=== PATIENT | male | born 1950 | race Caucasian/White ===

== ENCOUNTER → 2016-08-09 | Outpatient (REF) | payer BC ==
[2016-08-09 12:50] LABS: ALBUMIN 4.2 GM/DL (3.2-5.2); ALKALINE PHOSPHATASE 74 U/L (45-117); ALT/SGPT 30 U/L (12-78); ANION GAP 11 MEQ/L (8-16); AST/SGOT 23 U/L (15-37); BILIRUBIN,TOTAL 0.4 MG/DL (0.2-1.0); BLOOD UREA NITROGEN 26 MG/DL (7-18); CALCIUM LEVEL 8.9 MG/DL (8.8-10.2); CARBON DIOXIDE LEVEL 25 MEQ/L (21-32); CHLORIDE LEVEL 104 MEQ/L (98-107); CHOLESTEROL LEVEL 126 MG/DL (<200); GLOMERULAR FILTRATION RATE > 60.0 (>49); GLUCOSE, FASTING 86 MG/DL (80-110); POTASSIUM SERUM 4.3 MEQ/L (3.5-5.1); SODIUM LEVEL 140 MEQ/L (136-145); TOTAL PROTEIN 7.2 GM/DL (6.4-8.2); TRIGLYCERIDES LEVEL 107 MG/DL (<150)
== END ==
LOC: M SFHCPLAZ 08:00
PROVIDERS: ATTEND Physician Assistant
DX: I10 Essential (primary) hypertension (principal); E78.2 Mixed hyperlipidemia; Z12.5 Encounter for screening for malignant neoplasm of prostate
CPT/HCPCS: 36415; 80053; 80061; G0103

== ENCOUNTER → 2017-01-30 | Outpatient (REF) | payer BC | LOC: M SFHCPLAZ 08:50 | PROVIDERS: ATTEND Physician Assistant | DX: Z12.5 Encounter for screening for malignant neoplasm of prostate (principal) | CPT/HCPCS: 36415; G0103 ==

== ENCOUNTER → 2018-05-28 | Outpatient (REF) | payer MEDICARE ==
[2018-05-28 12:12] LABS: BASO # 0.1 10^3/uL (0.0-0.2); BASO % 1.3 % (0.0-1.0); EOS # 0.3 10^3/uL (0.0-0.50); EOS % 3.8 % (0.0-3.0); HEMATOCRIT 47.9 % (42.0-52.0); HEMOGLOBIN 16.6 g/dl (13.5-17.5); LYMPH # 1.4 10^3/uL (1.5-4.5); LYMPH % 20.1 % (24.0-44.0); MEAN CORPUSCULAR HEMOGLOBIN 31.9 pg (27.0-33.0); MEAN CORPUSCULAR HGB CONC 34.7 g/dl (32.0-36.5); MEAN CORPUSCULAR VOLUME 92.1 fl (80.0-96.0); MONO # 0.9 10^3/uL (0.0-0.8); MONO % 12.3 % (0.0-5.0); NEUTROPHILS # 4.5 10^3/uL (1.8-7.7); NEUTROPHILS % 62.1 % (36.0-66.0); PLATELET COUNT, AUTOMATED 259 10^3/uL (150-450); WHITE BLOOD COUNT 7.2 10^3/uL (4.0-10.0)
[2018-05-28 12:43] LABS: ALBUMIN 4.3 GM/DL (3.2-5.2); ALT/SGPT 24 U/L (12-78); BILIRUBIN,TOTAL 0.8 MG/DL (0.2-1.0); BLOOD UREA NITROGEN 22 MG/DL (7-18); CALCIUM LEVEL 9.2 MG/DL (8.8-10.2); CARBON DIOXIDE LEVEL 27 MEQ/L (21-32); CHLORIDE LEVEL 103 MEQ/L (98-107); CHOLESTEROL LEVEL 146 MG/DL (<200); CHOLESTEROL RISK RATIO 4.055 (<5); CREATININE FOR GFR 1.02 MG/DL (0.70-1.30); FREE T4 1.02 NG/DL (0.76-1.46); GLOMERULAR FILTRATION RATE > 60.0 (>49); GLUCOSE, FASTING 109 MG/DL (70-100); HDL CHOLESTEROL 36 MG/DL (>40); LDL CHOLESTEROL 84 MG/DL (<100); NON-HDL-C 110 MG/DL; POTASSIUM SERUM 4.2 MEQ/L (3.5-5.1); SODIUM LEVEL 139 MEQ/L (136-145); TOTAL PROTEIN 7.4 GM/DL (6.4-8.2); TRIGLYCERIDES LEVEL 130 MG/DL (<150)
[2018-05-28 14:00] LABS: MAU/CREAT RATIO 58.9 MCG/MG (0.0-30.0)
[2018-05-28 14:07] LABS: HEMOGLOBIN A1c 6.1 %
== END ==
LOC: M SFHCPLAZ 09:24
PROVIDERS: ATTEND Physician Assistant
DX: L98.9 Disorder of the skin and subcutaneous tissue, unspecified (principal); E78.2 Mixed hyperlipidemia; F32.9 Major depressive disorder, single episode, unspecified; R73.01 Impaired fasting glucose; N40.0 Benign prostatic hyperplasia without lower urinary tract symptoms; I10 Essential (primary) hypertension
CPT/HCPCS: 36415; 80053; 80061; 82043; 83036; 84439; 84443; 85025; 90682; G0008; G0103

== ENCOUNTER → 2018-05-30 | Outpatient (REF) | payer MEDICARE | LOC: M SFHCPLAZ 11:39 | PROVIDERS: ATTEND Dermatology | DX: L12.0 Bullous pemphigoid (principal); D22.39 Melanocytic nevi of other parts of face ==

== ENCOUNTER → 2018-06-13 | Outpatient (REF) | payer MEDICARE | LOC: M SFHCPLAZ 10:14 | PROVIDERS: ATTEND Dermatology | DX: Q87.89 Other specified congenital malformation syndromes, not elsewhere classified (principal) ==

== ENCOUNTER 2018-08-14 04:02 | Emergency (ER) | payer MEDICARE ==
[~2018-08-14] VITALS: Ht 175.3 cm; Wt 81.8 kg
[2018-08-14] MEDS ORDERED: AUGM0.0534 (04:09)
[2018-08-14] MEDS ORDERED: LISI40TA (04:09)
[2018-08-14] MEDS ORDERED: CITA-231 (04:09)
[2018-08-14] MEDS ORDERED: SIMV40TA2 (04:09)
[2018-08-14 04:46] LABS: BASO # 0.1 10^3/uL (0.0-0.2); BASO % 1.3 % (0.0-1.0); EOS # 0.3 10^3/uL (0.0-0.50); EOS % 5.7 % (0.0-3.0); HEMATOCRIT 49.1 % (42.0-52.0); LYMPH # 2.1 10^3/uL (1.5-4.5); LYMPH % 35.4 % (24.0-44.0); MEAN CORPUSCULAR HEMOGLOBIN 31.9 pg (27.0-33.0); MEAN CORPUSCULAR HGB CONC 34.6 g/dl (32.0-36.5); MEAN CORPUSCULAR VOLUME 92.1 fl (80.0-96.0); MONO # 0.8 10^3/uL (0.0-0.8); MONO % 13.3 % (0.0-5.0); NEUTROPHILS # 2.6 10^3/uL (1.8-7.7); PLATELET COUNT, AUTOMATED 197 10^3/uL (150-450); RED BLOOD COUNT 5.33 10^6/uL (4.30-6.10); WHITE BLOOD COUNT 5.9 10^3/uL (4.0-10.0)
[2018-08-14] MEDS ORDERED: KETOROLAC 30 MG/ML VIAL (J1885) IV ONE (05:00)
--- NOTE | 2018-08-14 05:04 | REPVR ---
EXAM: CT Head Without Contrast EXAM DATE/TIME: 08/14/2018 4:15 AM CLINICAL HISTORY: 68 years old, male; Signs and symptoms; Visual disturbance; Additional info: Blurred vision TECHNIQUE: Imaging protocol: Axial computed tomography images of the head/brain without contrast. Radiation optimization: All CT scans at this facility use at least one of these dose optimization techniques: automated exposure control; mA and/or kV adjustment per patient size (includes targeted exams where dose is matched to clinical indication); or iterative reconstruction. COMPARISON: No relevant prior studies available. FINDINGS: Brain: The brain parenchyma is symmetric. There is no evidence of intracranial hemorrhage or mass effect. There is preservation of the narvaez-white matter differentiation. Ventricles: Normal. No ventriculomegaly. Bones/joints: Unremarkable. No acute fracture. Sinuses: Visualized sinuses are unremarkable. No acute sinusitis. Mastoid air cells: Visualized mastoid air cells are unremarkable. No mastoid effusion. Soft tissues: There is extracranial soft tissue swelling/scalp hematoma in the posterior right parietal region. IMPRESSION: 1. Extracranial soft tissue swelling/scalp hematoma posterior right parietal region. 2. There is no evidence of intracranial hemorrhage or acute intracranial abnormality. Electronically signed by: Ashok Garibay On 08/14/2018 05:04:25 AM
[2018-08-14 05:08] LABS: ALBUMIN 3.8 GM/DL (3.2-5.2); ALT/SGPT 31 U/L (12-78); BILIRUBIN,DIRECT 0.1 MG/DL (0.0-0.2); BILIRUBIN,TOTAL 0.6 MG/DL (0.2-1.0); BLOOD UREA NITROGEN 22 MG/DL (7-18); CALCIUM LEVEL 8.5 MG/DL (8.8-10.2); CARBON DIOXIDE LEVEL 26 MEQ/L (21-32); CHLORIDE LEVEL 107 MEQ/L (98-107); CPK CREATINE PHOSPHOKINASE 134 U/L (39-308); CREATININE FOR GFR 0.98 MG/DL (0.70-1.30); GLOMERULAR FILTRATION RATE > 60.0 (>49); GLUCOSE, FASTING 115 MG/DL (70-100); MB/CK RELATIVE INDEX 1.42 (< OR =4); POTASSIUM SERUM 3.4 MEQ/L (3.5-5.1); SODIUM LEVEL 141 MEQ/L (136-145); TROPONIN I < 0.02 NG/ML (< 0.10)
[2018-08-14 06:00] VITALS: BP 142/87
--- NOTE | 2018-08-15 06:14 | ECGEPIP ---
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
== END 2018-08-14 06:38 | disposition home or self-care (01) ==
LOC: M ED 04:02
DX: G25.0 Essential tremor (principal); R00.0 Tachycardia, unspecified; I49.3 Ventricular premature depolarization; H53.8 Other visual disturbances; E78.5 Hyperlipidemia, unspecified; I10 Essential (primary) hypertension; G43.909 Migraine, unspecified, not intractable, without status migrainosus; Z79.899 Other long term (current) drug therapy
CPT/HCPCS: 70450; 80048; 80076; 82550; 82553; 84443; 84484; 85025; 93005; 93041; 94760; 96374; 99285; J1885

== ENCOUNTER → 2018-08-15 | Outpatient (REF) | payer MEDICARE ==
[~2018-08-15] MED LIST: AUGM0.0534; CITA-231; LISI40TA; SIMV40TA2
[2018-08-15 14:51] LABS: BLOOD UREA NITROGEN 27 MG/DL (7-18); CALCIUM LEVEL 8.9 MG/DL (8.8-10.2); CARBON DIOXIDE LEVEL 26 MEQ/L (21-32); CHLORIDE LEVEL 108 MEQ/L (98-107); CREATININE FOR GFR 0.89 MG/DL (0.70-1.30); GLOMERULAR FILTRATION RATE > 60.0 (>49); GLUCOSE, FASTING 91 MG/DL (70-100); POTASSIUM SERUM 4.5 MEQ/L (3.5-5.1); SODIUM LEVEL 141 MEQ/L (136-145)
== END ==
LOC: M SFHCPLAZ 11:12
PROVIDERS: ATTEND Physician Assistant
DX: E87.6 Hypokalemia (principal)

== ENCOUNTER 2018-09-12 11:56 | Inpatient (IN) | payer MEDICARE ==
[~2018-09-12] VITALS: Ht 175.3 cm; Wt 81.8 kg
[~2018-09-12 11:56] MED LIST changes: -CITA-231; +CITA40TA6 PO; -LISI40TA; +LISI40TA PO; -SIMV40TA2; +SIMV40TA2 PO
[2018-09-12] MEDS ORDERED: GI COCKTAIL 50ML BTL(HYOSCYAMINE/MAALOX/LIDOCAINE VISCOUS)(1:3:1) PO ONE ×2 (12:15→18:45)
[2018-09-12] MEDS ORDERED: IPRATROPIUM 0.5MG/ALBUTEROL 2.5MG INH SOL UD 3ML (DUONEB)(J7620) NEB PRN (12:15)
[2018-09-12] MEDS ORDERED: NS 1,000 ML IV ONE (12:15)
[2018-09-12 12:28] LABS: BASO # 0.1 10^3/uL (0.0-0.2); BASO % 0.5 % (0.0-1.0); EOS # 0.1 10^3/uL (0.0-0.50); EOS % 0.4 % (0.0-3.0); LYMPH # 1.9 10^3/uL (1.5-4.5); MEAN CORPUSCULAR HEMOGLOBIN 32.1 pg (27.0-33.0); MEAN CORPUSCULAR HGB CONC 35.1 g/dl (32.0-36.5); MEAN CORPUSCULAR VOLUME 91.6 fl (80.0-96.0); MONO # 1.3 10^3/uL (0.0-0.8); MONO % 9.1 % (0.0-5.0); NEUTROPHILS # 11.3 10^3/uL (1.8-7.7); NEUTROPHILS % 76.5 % (36.0-66.0); PLATELET COUNT, AUTOMATED 235 10^3/uL (150-450); WHITE BLOOD COUNT 14.7 10^3/uL (4.0-10.0)
--- NOTE | 2018-09-12 12:33 | REP ---
Portable chest, 12:20 p.m., single AP view, the patient semi upright: Comparison is 11/09/2007. The lung bhandari are clear. The cardiac size is normal. The candido, mediastinum, and skeletal structures are unremarkable. Impression: Negative portable chest. There is no interval change. Electronically Signed by Wilton Contreras MD 09/12/2018 12:24 P
[2018-09-12 12:34] LABS: HEMATOCRIT 51.3 % (42.0-52.0)
[2018-09-12 13:10] LABS: BLOOD UREA NITROGEN 25 MG/DL (7-18); CALCIUM LEVEL 10.2 MG/DL (8.8-10.2); CARBON DIOXIDE LEVEL 24 MEQ/L (21-32); CHLORIDE LEVEL 102 MEQ/L (98-107); CPK CREATINE PHOSPHOKINASE 73 U/L (39-308); CREATININE FOR GFR 2.19 MG/DL (0.70-1.30); GLOMERULAR FILTRATION RATE 32.2 (>49); GLUCOSE, FASTING 179 MG/DL (70-100); MB/CK RELATIVE INDEX 1.51 (< OR =4); POTASSIUM SERUM 4.2 MEQ/L (3.5-5.1); SODIUM LEVEL 137 MEQ/L (136-145); TROPONIN I < 0.02 NG/ML (< 0.10)
[2018-09-12] MEDS ORDERED: ASPI81TA85 PO (13:23)
[2018-09-12 15:21] LABS: BILIRUBIN, URINE MANUAL NEGATIVE (NEGATIVE); GLUCOSE, URINE (UA) MANUAL TRACE(50 MG/DL) mg/dL (NEGATIVE); KETONE, URINE MANUAL 1+ mg/dL (NEGATIVE); UROBILINOGEN, URINE MANUAL NORMAL (NORMAL)
[2018-09-12 15:32] LABS: SQUAMOUS EPITHELIAL CELL URINE SMALL AMOUNT /hpf (SMALL AMT)
[2018-09-12 15:33] LABS: BACTERIA, URINE SMALL AMOUNT
[2018-09-12 15:34] LABS: GRANULAR CAST, URINE 0-1 /lpf; WHITE BLOOD CELL CAST, URINE 0-1 /lpf
[2018-09-12 15:35] LABS: AMORPHOUS SEDIMENT, URINE SMALL AMOUNT (NEGATIVE); MUCUS, URINE SMALL AMOUNT (NEGATIVE)
[2018-09-12] MEDS ORDERED: NITROGLYCERIN 0.4 MG SUBL TABLET SL STA (16:18)
[2018-09-12] MEDS ORDERED: ONDANSETRON 4MG/2ML VIAL (J2405) IV ONE (17:00)
[2018-09-12 17:05] VITALS: BP 147/88
[2018-09-12 17:19] LABS: CK-MB VALUE MASS < 1.0 NG/ML (<3.6); CPK CREATINE PHOSPHOKINASE 67 U/L (39-308); MB/CK RELATIVE INDEX 1.49 (< OR =4); TROPONIN I < 0.02 NG/ML (< 0.10)
[2018-09-12 17:33] LABS: ALBUMIN 4.9 GM/DL (3.2-5.2); ALT/SGPT 31 U/L (12-78); BILIRUBIN,DIRECT 0.2 MG/DL (0.0-0.2); BILIRUBIN,TOTAL 0.8 MG/DL (0.2-1.0); LIPASE 142 U/L (73-393); TOTAL PROTEIN 7.9 GM/DL (6.4-8.2)
[2018-09-12] MEDS ORDERED: IPRATROPIUM 0.5MG/ALBUTEROL 2.5MG INH SOL UD 3ML (DUONEB)(J7620) NEB ONE (17:45)
[2018-09-12] MEDS ORDERED: METOCLOPRAMIDE INJ 10MG/2ML VIAL (J2765) IV ONE ×2 (18:00→22:15)
[2018-09-12] MEDS: NS 1,000 ML IV SCH (18:15)
[2018-09-12] MEDS ORDERED: MULTCAP PO (18:39)
[2018-09-12] MEDS ORDERED: OMEP20CA3 PO (18:39)
--- NOTE | 2018-09-12 19:33 | ECGEPIP ---
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
--- NOTE | 2018-09-12 20:08 | REP ---
Supine abdomen single AP view: The bowel gas pattern is normal. There is no bowel obstruction. There are no calcifications. There is degenerative disc disease throughout the lumbar spine. Skeletal structures are otherwise unremarkable. Impression: Normal bowel gas pattern. Electronically Signed by Wilton Contreras MD 09/12/2018 07:59 P
[2018-09-12] MEDS ORDERED: PANTOPRAZOLE 40MG INJ (PROTONIX) (C9113) IV ONE (22:15)
[2018-09-12] MEDS ORDERED: PROMETHAZINE INJ 25 MG/ML VIAL (J2550) IV PRN (22:15)
--- NOTE | 2018-09-13 00:13 | HPEPDOC ---
General Date of Admission Sep 12, 2018 at 20:50 Chief Complaint The patient is a 68-year-old male admitted with a reason for visit of Intractab le Vomiting. History of Present Illness 68-year-old male with past medical history of hypertension, dyslipidemia, GERD, anxiety/depression presents to the ER with a chief complaint of an episode of nausea, vomiting, and diaphoresis while playing golf this morning. He denies any associated lightheadedness, dizziness, shortness of breath, cough, chest pain, palpitations, abdominal pain, or any recent travel, sick contacts, or ingestion of any foreign foods. Of note, the patient states that he has had episodes like this in the past which was previously attributed to dehydration. The patient denies any other symptoms leading up to this event. In the ER, the patient was noted to have a low-grade fever with an elevated white blood cell count. In addition, he was also noted to have an acute kidney injury. He will be admitted under the service of the [facility] for further evaluation and management. Home Medications Scheduled Aspirin (Aspir 81) 81 Mg Tablet.dr, 81 MG PO DAILY, (Reported) Citalopram Hydrobromide (Citalopram HBr) 40 Mg Tab, 40 MG PO DAILY, (Reported) Lisinopril (Lisinopril) 40 Mg Tab, 40 MG PO DAILY, (Reported) Multivitamin (Multivitamins) 1 Each Capsule, 1 CAP PO DAILY, (Reported) Omeprazole (Omeprazole) 20 Mg Capsule.dr, 20 MG PO DAILY, (Reported) Simvastatin (Simvastatin) 40 Mg Tab, 40 MG PO DAILY, (Reported) Allergies Coded Allergies: No Known Drug Allergies (Verified Allergy, Unknown, 09/12/18) Past Medical History Medical History As noted in HPI. Surgical History None. Social History * Smoker: Denies Alcohol: occationally Drugs: denies Review of Systems Other systems 10 point review of systems negative unless otherwise specified in HPI. Physical Examination General Exam: Positive: Alert, Cooperative, No Acute Distress ENT Exam: Positive: Atraumatic; Negative: Mucous membr. moist/pink (dry mucous membranes) Neck Exam: Negative: JVD Chest Exam: Positive: Clear to auscultation, Normal air movement Heart Exam: Positive: Tachycardic, Normal S1, Normal S2 Abdomen Exam: Positive: Soft; Negative: Tenderness Extremity Exam: Negative: Tenderness, Swelling Psych Exam: Positive: Oriented x 3 Vital Signs Vital Signs Date Time Temp Pulse Resp B/P (MAP) Pulse Ox O2 Delivery O2 Flow Rate FiO2 09/12/18 23:33 100.0 09/12/18 23:01 100 18 95 Nasal Cannula 2.0 09/12/18 23:00 168/78 (108) Laboratory Data Labs 24H Laboratory Tests 2 09/12/18 12:13: Immature Granulocyte % (Auto) 0.5, White Blood Count 14.7H, Red Blood Count 5.60, Hemoglobin 18.0H, Hematocrit 51.3, Mean Corpuscular Volume 91.6, Mean Corpuscular Hemoglobin 32.1, Mean Corpuscular Hemoglobin Concent 35.1, Red Cell Distribution Width 12.4, Platelet Count 235, Neutrophils (%) (Auto) 76.5H, Lymphocytes (%) (Auto) 13.0L, Monocytes (%) (Auto) 9.1H, Eosinophils (%) (Auto) 0.4, Basophils (%) (Auto) 0.5, Neutrophils # (Auto) 11.3H, Lymphocytes # (Auto) 1.9, Monocytes # (Auto) 1.3H, Eosinophils # (Auto) 0.1, Basophils # (Auto) 0.1, Nucleated Red Blood Cells % (auto) 0.0, Anion Gap 11, Glomerular Filtration Rate 32.2L, Blood Urea Nitrogen 25H, Creatinine 2.19H, Sodium Level 137, Potassium Level 4.2, Chloride Level 102, Carbon Dioxide Level 24, Calcium Level 10.2, Total Creatine Kinase 73, Aspartate Amino Transf (AST/SGOT) 16, Alanine Aminotransferase (ALT/SGPT) 31, Alkaline Phosphatase 81, Total Bilirubin 0.8, Direct Bilirubin 0.2, Creatine Kinase MB 1.0, Creatine Kinase MB Relative Index 1.51, Troponin I < 0.02, Total Protein 7.9, Albumin 4.9, Albumin/Globulin Ratio 1.63, Lipase 142 09/12/18 14:50: Urine Color (MADALYN) YELLOW, Urine Appearance (MADALYN) HAZYH, Urine pH (MADALYN) 5.0, Urine Specific [place] (MADALYN) 1.025, Urine Protein 2+H, Bedside Urine Glucose (UA) TRACE(50 MG/DL), Bedside Urine Ketones (LAB) 1+H, Bedside Urine Blood TRACEH, Bedside Urine Nitrite (LAB) NEGATIVE, Bedside Urine Bilirubin (LAB) NEGATIVE, Bedside Urine Urobilinogen (LAB) NORMAL, Bedside Urine Leukocyte Esterase (L NEGATIVE, Urine Sediment Examination PERFORMED, Urine RBC 1-3, Urine WBC NONE SEEN, Urine Squamous Epithelial Cells SMALL AMOUNT, Urine Amorphous Sediment SMALL AMOUNTH, Urine Bacteria SMALL AMOUNTH, Urine Hyaline Casts 7-10H, Urine Granular Casts 0-1, Urine White Blood Cell Casts 0-1, Urine Mucus SMALL AMOUNTH, Urine Random Creatinine 293.0, Urine Random Sodium 40 09/12/18 16:19: Total Creatine Kinase 67, Creatine Kinase MB < 1.0, Creatine Kinase MB Relative Index 1.49, Troponin I < 0.02 CBC/BMP Laboratory Tests 09/12/18 12:13 Red Blood Count 5.60, Mean Corpuscular Volume 91.6, Mean Corpuscular Hemoglobin 32.1, Mean Corpuscular Hemoglobin Concent 35.1, Red Cell Distribution Width 12.4, Neutrophils (%) (Auto) 76.5 H, Lymphocytes (%) (Auto) 13.0 L, Monocytes (%) (Auto) 9.1 H, Eosinophils (%) (Auto) 0.4, Basophils (%) (Auto) 0.5, Neutrophils # (Auto) 11.3 H, Lymphocytes # (Auto) 1.9, Monocytes # (Auto) 1.3 H, Eosinophils # (Auto) 0.1, Basophils # (Auto) 0.1, Calcium Level 10.2, Total Creatine Kinase 73 Microbiology Microbiology 09/12/18 Respiratory Virus Panel (PCR) (PHUONG) - Final, Complete Plan / VTE VTE Prophylaxis Ordered?: Yes Plan Plan Episode of Nausea, Vomiting likely 2/2 Gastroenteritis Patient w/o any abdominal pain at this time and KUB unremarkable IVF Hydration ordered If patient continues with N/V or develops abdominal pain we will consider ordering a CT Abd/Pel Cont with supportive care Acute Kidney Injury 2/2 Above, and concomitant Lisinopril use Hold nephrotoxins IV fluid hydration ordered Urine lytes ordered Renal ultrasound We will follow-up with a BMP in the morning HTN, stable We will hold Lisinopril 2/2 DANIAL Dyslipidemia Cont Statin GERD Cont PPI DVT Prophylaxis Heparin WAYNE OSORIO MD Sep 13, 2018 00:13
[2018-09-13 00:15] VITALS: BP 186/92
[2018-09-13] MEDS ORDERED: ONDANSETRON 4MG/2ML VIAL (J2405) IV PRN (00:15)
[2018-09-13 01:45] VITALS: BP 136/79
[2018-09-13] MEDS: NS 1,000 ML IV SCH ×2 (03:39→12:12)
[2018-09-13 06:00] VITALS: BP 141/83
[2018-09-13] MEDS: HEPARIN SOD (PORCINE) 5000 UNITS/ML VIAL SC SCH ×2 (06:00→14:00)
[2018-09-13 06:38] LABS: HEMATOCRIT 44.8 % (42.0-52.0); MEAN CORPUSCULAR HEMOGLOBIN 31.8 pg (27.0-33.0); MEAN CORPUSCULAR HGB CONC 34.4 g/dl (32.0-36.5); MEAN CORPUSCULAR VOLUME 92.6 fl (80.0-96.0); PLATELET COUNT, AUTOMATED 219 10^3/uL (150-450); RED BLOOD COUNT 4.84 10^6/uL (4.30-6.10); WHITE BLOOD COUNT 12.2 10^3/uL (4.0-10.0)
[2018-09-13 06:47] LABS: HEMOGLOBIN 15.4 g/dl (13.5-17.5)
[2018-09-13 07:10] LABS: ALBUMIN 3.7 GM/DL (3.2-5.2); BILIRUBIN,TOTAL 0.7 MG/DL (0.2-1.0); CALCIUM LEVEL 8.2 MG/DL (8.8-10.2); CREATININE FOR GFR 1.29 MG/DL (0.70-1.30); GLOMERULAR FILTRATION RATE 59.3 (>49); MAGNESIUM LEVEL 2.5 MG/DL (1.8-2.4); POTASSIUM SERUM 4.2 MEQ/L (3.5-5.1); TOTAL PROTEIN 6.7 GM/DL (6.4-8.2)
[2018-09-13] MEDS ORDERED: CitaloPRAM (CeleXA) 20 MG TAB PO SCH (09:00)
[2018-09-13] MEDS ORDERED: OMEPRAZOLE 20 MG CAP PO SCH (09:00)
[2018-09-13] MEDS ORDERED: MULTIVITAMINS/MINERALS THERAP 1 TAB PO SCH (09:00)
[2018-09-13] MEDS ORDERED: ASPIRIN 81 MG ENTERIC TAB PO SCH (09:00)
[2018-09-13] MEDS ORDERED: SIMVASTATIN 40 MG TAB PO SCH (09:00)
--- NOTE | 2018-09-13 18:15 | ECGEPIP ---
Stationary ECG Study 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
--- NOTE | 2018-09-14 09:11 | REP ---
Renal ultrasound: The right kidney measures 10.9 x 6.0 x 6.3 cm. The left kidney measures 12.8 x 5.2 x 5.6 cm. The right kidney is in the low normal size range. Renal cortical echogenicity is normal bilaterally. There is no hydronephrosis on the right on the left. There are no renal calculi. There are no renal solid masses. There is a right renal mid pole parapelvic cyst measuring 1.6 x 1.0 x 1.4 cm. Bladder: The bladder is nondistended and cannot be further evaluated. Impression: The right kidney is in the low normal size range. There is a right renal parapelvic cyst as described. Electronically Signed by Wilton Contreras MD 09/13/2018 09:49 A
--- NOTE | 2018-09-14 14:03 | DSES ---
DATE OF ADMISSION: 09/12/2018 DATE OF DISCHARGE: 09/13/2018 DIAGNOSES: Acute gastroenteritis. Hypertension. Gastroesophageal reflux. Hypercholesterolemia. Essential tremor. BRIEF HISTORY AND PHYSICAL: Mr. Estrella is a 68-year-old gentleman who became ill with intractable vomiting while out playing golf. He normally takes [id number] omeprazole on a daily basis but had not taken any for several days and he described that he had a lot of substernal burning and nausea that was contributing to his repeated vomiting. His admission examination showed that he had clear lungs. His temperature was 100.00, pulse was 100, respirations 18, oxygen (O2) saturation was 95% on room air. His blood pressure was 168/78. LABORATORY DATA: On admission, his hemoglobin was 18.0, subsequently 15.4 thousand. Admission white count was 14,700, subsequently 12,200. Admission BUN was 25, subsequently 29. Admission creatinine was 2.19, subsequently 1.29. Glucose on admission 179, subsequently 112. potassium 4.2 and 4.2. Chest x-ray showed clear lung bhandari. Normal cardiac size. Abdominal x-ray showed normal bowel gas pattern. He had a renal ultrasound done that showed a low normal sized right kidney, no hydronephrosis, and a right parapelvic cyst measuring 1.6X1.0X1.4 cm COURSE IN THE FACILITY: The patient was given Zofran and intravenous (IV) fluids in the emergency department. He was also given IV pantoprazole. He said that after he received that, he felt much better. It appears that he also got a promethazine injection. The next day he felt quite well. No nausea, no vomiting, no diarrhea, no abdominal pain. Reflux symptoms were resolved. On the day of his discharge, the patient was not in any distress. He did have some mild tremor at rest. His temperature was 99.0, blood pressure 141/83, pulse was 90 and regular, respirations 17, oxygen (O2) saturation was 100% on 2 liters. Lungs were clear. Heart had a regular rhythm without any murmur, click or gallop. Abdomen was soft, nontender without any masses or organomegaly. The patient was instructed to resume a no added salt diet. He was tolerating clear liquids in the hospital. He was to eat light, no heavy, greasy or fried foods for the next 24 hours. He should resume his regular medications, which are aspirin 81 mg daily, omeprazole 20 mg daily, simvastatin 40 mg daily, Celexa 40 mg daily, multivitamin with minerals daily. He should be seen in the office within two weeks' time with his regular provider whom w\he identifies as Latonia Small. RITESH
== END 2018-09-13 14:17 | disposition home or self-care (01) | DRG 392 ==
LOC: M ED 11:56 → M ED INP 20:50 → M MSPAV 09-13 00:06
PROVIDERS: ADMIT Internal Medicine; ATTEND Family Medicine
DX: K52.9 Noninfective gastroenteritis and colitis, unspecified (principal); N17.9 Acute kidney failure, unspecified; I10 Essential (primary) hypertension; E78.00 Pure hypercholesterolemia, unspecified; R25.1 Tremor, unspecified; E78.5 Hyperlipidemia, unspecified; K21.9 Gastro-esophageal reflux disease without esophagitis; F41.9 Anxiety disorder, unspecified; F32.9 Major depressive disorder, single episode, unspecified; Z88.6 Allergy status to analgesic agent; Z79.899 Other long term (current) drug therapy

== ENCOUNTER → 2019-01-01 | Outpatient (CLI) | payer MEDICARE ==
[~2019-01-01] MED LIST changes: +ASPI81TA85 PO; +MULTCAP PO; +OMEP20CA4 PO
[2019-01-01 13:27] LABS: BASO # 0.1 10^3/uL (0.0-0.2); BASO % 1.1 % (0.0-1.0); EOS # 0.3 10^3/uL (0.0-0.50); EOS % 3.9 % (0.0-3.0); HEMATOCRIT 46.8 % (42.0-52.0); HEMOGLOBIN 16.1 g/dl (13.5-17.5); LYMPH # 2.1 10^3/uL (1.5-4.5); LYMPH % 28.6 % (24.0-44.0); MEAN CORPUSCULAR HGB CONC 34.4 g/dl (32.0-36.5); MONO # 0.8 10^3/uL (0.0-0.8); MONO % 10.7 % (0.0-5.0); NEUTROPHILS % 55.3 % (36.0-66.0); PLATELET COUNT, AUTOMATED 201 10^3/uL (150-450); RED BLOOD COUNT 5.03 10^6/uL (4.30-6.10); WHITE BLOOD COUNT 7.3 10^3/uL (4.0-10.0)
[2019-01-01 13:54] LABS: BLOOD UREA NITROGEN 22 MG/DL (7-18); CALCIUM LEVEL 9.1 MG/DL (8.8-10.2); CARBON DIOXIDE LEVEL 28 MEQ/L (21-32); CHLORIDE LEVEL 106 MEQ/L (98-107); GLOMERULAR FILTRATION RATE > 60.0 (>49); GLUCOSE, FASTING 92 MG/DL (70-100); POTASSIUM SERUM 4.4 MEQ/L (3.5-5.1); SODIUM LEVEL 139 MEQ/L (136-145)
== END ==
LOC: M LAB 12:36
PROVIDERS: ATTEND Family Medicine
DX: Z01.818 Encounter for other preprocedural examination (principal); D03.30 Melanoma in situ of unspecified part of face

== ENCOUNTER 2019-01-06 07:16 | Day surgery (SDC) | payer MEDICARE ==
[~2019-01-06] VITALS: Ht 175.3 cm; Wt 81.6 kg
[~2019-01-06 07:16] MED LIST changes: +LR 1,000 ML IV ONE; +ceFAZolin SOD 1 GM in D5W MINI-BAG PLUS 50 ML IV ONE
[2019-01-06] MEDS ORDERED: LIDOCAINE 2% INJ 100 MG/5 ML SDV (FOR ANES.) As Ordered ONE (08:04)
[2019-01-06] MEDS ORDERED: PROPOFOL 200 MG/20 ML VIAL As Ordered ONE (08:04)
[2019-01-06] MEDS ORDERED: ONDANSETRON 4MG/2ML VIAL (J2405) As Ordered ONE (08:04)
[2019-01-06] MEDS ORDERED: dexameTHASONE 4 MG/ML 1ML VIAL (J1100) As Ordered ONE (08:04)
[2019-01-06] MEDS ORDERED: fentaNYL 100 MCG/2 ML INJECTION (J3010) As Ordered ONE (08:05)
[2019-01-06] MEDS ORDERED: MIDAZOLAM INJ 2 MG/2 ML VIAL (J2250) As Ordered ONE (08:05)
[2019-01-06] MEDS ORDERED: LIDOCAINE 2% W/EPIN INJ 20ML **PRES FREE As Ordered ONE (08:37)
[2019-01-06] MEDS ORDERED: BACITRACIN OINT 30GM As Ordered ONE (08:37)
[2019-01-06] MEDS ORDERED: POVIDONE-IODINE 5% OPHTH PREP SOL 30ML As Ordered ONE (08:38)
[2019-01-06] MEDS ORDERED: LIDOCAINE W/EPINEPHRINE 1% 20ML VIAL As Ordered ONE (09:02)
[2019-01-06] MEDS ORDERED: BACITRACIN PWD 50,000 UNITS VIAL As Ordered ONE (09:11)
[2019-01-06] MEDS ORDERED: EPINEPHrine 1MG/ML INJ 30ML MD-VIAL As Ordered ONE (09:39)
[2019-01-06] MEDS ORDERED: ePHEDrine SULFATE 25 MG/5 ML(5MG/ML) SYRINGE As Ordered ONE (09:54)
--- NOTE | 2019-01-06 10:23 | POST-OPPD ---
Postoperative Procedure Note Date Of Procedure: Jan 06, 2019 PREOPERATIVE DIAGNOSIS: Malignant lesion forehead POSTOPERATIVE DIAGNOSIS: same FINDINGS: Open wound forehead 2.2x1 cm, margins 1 cm. Wound after excision 3x4cm PROCEDURE: Excision malignant lesion forehead with margins, Split thickness skin graft closure SURGEON: Dr Arriola CLINICAL PHARMACY SPECIALIST: Dr Porras ANESTHESIA: general SPECIMENS: Forehead lesion, suture at 12 O'clock ESTIMATED BLOOD LOSS: 3 cc REPLACED: none DRAINS: none COMPLICATIONS: none POSTOPERATIVE CONDITION: stable [id number] MILLY ARRIOLA DO Jan 06, 2019 10:23
[2019-01-06] MEDS ORDERED: OXYC1TAB23 PO (10:36)
[2019-01-06] MEDS ORDERED: fentaNYL 100 MCG/2 ML INJECTION (J3010) IV PRN (10:45)
[2019-01-06] MEDS ORDERED: LR 1,000 ML IV SCH (10:45)
[2019-01-06] MEDS ORDERED: ONDANSETRON 4MG/2ML VIAL (J2405) IV PRN (10:45)
[2019-01-06] MEDS ORDERED: oxyCODONE 5MG TAB PO PRN (10:45)
[2019-01-06 12:25] VITALS: BP 133/85
--- NOTE | 2019-01-07 17:43 | RO ---
DATE OF PROCEDURE: 01/06/2019 PREPROCEDURE DIAGNOSIS: Malignant lesion forehead. Malignant melanoma. POSTPROCEDURE DIAGNOSIS: Malignant lesion forehead. Malignant melanoma. OPERATIVE PROCEDURE: Excision of malignant lesion forehead with margins and split thickness skin graft closure. SURGEON: Kathy Morton DO CRUMB PACKER: Dr. Porras ANESTHESIA: General. SPECIMENS: 1. Forehead lesion. 2. Suture at 12-o'clock. ESTIMATED BLOOD LOSS: 3 mL REPLACED: None. DRAINS: None. COMPLICATIONS: None. 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 He is scheduled for formal excison. He has an open wound from a previous excision. The margins were positive, so we are scheduled for formal excision. All the risks and benefits, and alternatives discussed with the patient. We are planning to close this defect with skin graft. The patient agrees with the plan and we are choosing a right thigh for the donor site preoperatively. DESCRIPTION OF PROCEDURE: After the marking and consent were completed, patient brought into the operating room and placed in supine position. Preoperative antibiotics were given. Sequentials placed on the lower calf. General anesthesia was induced. He was prepped and draped in the usual sterile fashion. We started our procedure by remeasuring the wound, a 2.2 x 1 cm in diameter. We outlined margins of 1 cm. Then 1% lidocaine with epinephrine was infiltrated in the area. Then we started our excision and a specimen was taken of full thickness skin in all entirety using #10 blade. The specimen was marked at 12-o'clock and sent to pathology fresh. Hemostasis was obtained using electrocautery. We had taken a split thickness graft 1/12,000th of an inch from the right anterior thigh. We did not measure it. It was cut to the defect and sutured in place with #5-0 chromic suture, then a bulky dressing was sutured in as well with Xeroform and cotton balls and held in place with interrupted #4-0 Monocryl sutures. Occlusive dressing is applied to the right thigh. Patient extubated in operating room without any difficulties and transferred to the recovery room in stable condition.
== END 2019-01-06 12:45 | disposition home or self-care (01) ==
LOC: M SDC 07:16
PROVIDERS: ATTEND Plastic Surgery Surgery of the Hand
DX: D03.39 Melanoma in situ of other parts of face (principal); I10 Essential (primary) hypertension; Z79.82 Long term (current) use of aspirin; Z79.899 Other long term (current) drug therapy; F32.9 Major depressive disorder, single episode, unspecified; F41.9 Anxiety disorder, unspecified
CPT/HCPCS: 11643; 15120; 88305; J0690; J1100; J2250; J2405; J3010